=== PATIENT | female | born 1975 | race Hispanic/Latino ===

== ENCOUNTER → 2019-08-23 | Day surgery (SDC) | payer BC ==
[~2019-08-23] MED LIST: FAMOTIDINE20 MG PO; FENTANYL CITRATE/PF 100MCG/2 ML INJ ONE; HYDROCHLOROTHIA25 MG PO; IRON PO; LOSARTAN POTAS100 MG PO; METOPROLOL SUCC50 MG PO; MIDAZOLAM HCL 2 MG/2 ML VIAL ONE; PHENYLEPHRINE HCL 1% 10 MG/ML VIAL ONE; PROPOFOL IV EMULSION 10 MG/ML 50 ML VIAL ONE
[2019-08-23 13:25] VITALS: BP 113/65
--- OUTSIDE RECORDS SUMMARY | 2019-09-02 10:27 | XMS REPORT ---
[facility] Address Unknown Phone Unavailable Care Team Providers Care Slab Puller Name Role Phone DEBORAH TRACY Unavailable Unavailable Payers Payer Name Policy Type Policy Number Effective Date Expiration Date Problems This patient has no known problems. Allergies, Adverse Reactions, Alerts Allergy Name Allergy Type Status Severity Reaction(s) Onset Date Inactive Date Treating Clinician Comments No Known Allergies DA Active U 2019-07-18 00:00:00 No Known Allergies DA Active U 2014-01-11 00:00:00 Medications This patient has no known medications. Results Test Description Test Time Test Comments Text Results Atomic Results Result Comments TROPONIN-I 2019-07-18 20:34:00 TROPONIN-I (test code=TROPI) <0.015 ng/mL 0-0.045 COMMENTS TO WOOD GETTER: COLLECT 3 HOURS AFTER PREVIOUS [id number] 17:18:00* Test Item Value Reference Range Comments TROPONIN-I (test code=TROPI) <0.015 ng/mL 0-0.045 COMMENTS TO WOOD GETTER: COLLECT 3 HOURS AFTER PREVIOUS SAMPLETROPONIN I [id number] 10:31:00* Test Item Value Reference Range Comments TROPONIN I RAPID (test code=TROPIRAP) 0.00 ng/mL <0.08 Please Note New Reference Range 0.00-0.079 ng/mL - Negative>or=0.08 ng/mL - Positive The use of serial sampling and testing protocol is arecommended practice.An elevated troponin level alone is often not sufficient fordiagnosis of myocardial infarction. Troponin results obtained by different assays may vary.Evaluation of the extent of myocardial damage based onincrease of troponin would be valid only if similarmethodology is used. CHEMISTRY 8 [id number] 10:17:00* Test Item Value Reference Range Comments ISTAT-SODIUM (test code=NAP) mmol/L 135-148 ISTAT-POTASSIUM (test code=KP) mmol/L 3.5-5.5 ISTAT-CHLORIDE (test code=CLP) mmol/L 101-109 ISTAT CARBON DIOXIDE (test code=ISTAT-CO2) mmol/L 21-32 ISTAT CALCIUM IONIZED (test code=ISTAT-ANIKET) mg/dL 1.12-1.32 ISTAT-ANION GAP (test code=GAPP) MEQ/L 10-20 ISTAT-GLUCOSE (test code=GLUP) mg/dL 74-106 ISTAT-BUN (test code=BUNP) mg/dL 3-21 BEDSIDE CREATININE (test code=CREATBED) mg/dL 0.7-1.3 GLOMERULAR FILTRATION RATE POC (test code=GFRBED) 133 >60 CHEMISTRY 8 [id number] 10:17:00* Test Item Value Reference Range Comments ISTAT-SODIUM (test code=NAP) 139 mmol/L 135-148 ISTAT-POTASSIUM (test code=KP) 3.5 mmol/L 3.5-5.5 ISTAT-CHLORIDE (test code=CLP) 103 mmol/L 101-109 ISTAT CARBON DIOXIDE (test code=ISTAT-CO2) 34.0 mmol/L 21-32 ISTAT CALCIUM IONIZED (test code=ISTAT-ANIKET) 1.16 mg/dL 1.12-1.32 ISTAT-ANION GAP (test code=GAPP) 6.0 MEQ/L 10-20 ISTAT-GLUCOSE (test code=GLUP) 131 mg/dL 74-106 ISTAT-BUN (test code=BUNP) 9 mg/dL 3-21 BEDSIDE CREATININE (test code=CREATBED) 0.5 mg/dL 0.7-1.3 GLOMERULAR FILTRATION RATE POC (test code=GFRBED) 133 >60 BASIC METABOLIC [id number] 10:03:00* Test Item Value Reference Range Comments SODIUM (test code=NA) 140 mmol/L 136-145 POTASSIUM (test code=K) 3.5 mmol/L 3.5-5.1 CHLORIDE (test code=CL) 106.0 mmol/L 98-107 CARBON DIOXIDE (test code=CO2) 27.0 mmol/L 21-32 ANION GAP (test code=GAP) 10.5 10-20 GLUCOSE (test code=GLU) 127 mg/dL 74-106 BLOOD UREA NITROGEN (test code=BUN) 10 mg/dL 7-18 GLOMERULAR FILTRATION RATE (test code=GFR) > 60 mL/min >=60 Estimated GFR by using Modified MDRD formula.Chronic kidney disease is defined as either kidney damageor GFR <60 mL/min/1.73 m2 for >3 months. CREATININE (test code=CREAT) 0.60 mg/dL 0.55-1.02 Note change in reference range due to change in reagent. BUN/CREATININE RATIO (test code=BUN/CREA) 16.7 10-20 CALCIUM (test code=CA) 8.9 mg/dL 8.5-10.1 HCG SERUM [id number] 10:03:00* Test Item Value Reference Range Comments HCG SERUM QUAL (test code=HCGQL) NEGATIVE NEGATIVE This HCGQL test is NOT applicable for MALE patients.Check with nurse about probable order error.If Tumor Marker Test needed, nurse should order test "HCGTU"(Test #550.72273) [id number] 10:03:00* Test Item Value Reference Range Comments TROPONIN-I (test code=TROPI) <0.015 ng/mL 0-0.045 BASIC METABOLIC [id number] 10:00:00* Test Item Value Reference Range Comments SODIUM (test code=NA) 140 mmol/L 136-145 POTASSIUM (test code=K) 3.5 mmol/L 3.5-5.1 CHLORIDE (test code=CL) 106.0 mmol/L 98-107 CARBON DIOXIDE (test code=CO2) mmol/L 21-32 ANION GAP (test code=GAP) 10-20 GLUCOSE (test code=GLU) mg/dL 74-106 BLOOD UREA NITROGEN (test code=BUN) mg/dL 7-18 GLOMERULAR FILTRATION RATE (test code=GFR) mL/min >=60 CREATININE (test code=CREAT) mg/dL 0.55-1.02 BUN/CREATININE RATIO (test code=BUN/CREA) 10-20 CALCIUM (test code=CA) mg/dL 8.5-10.1 HCG SERUM [id number] 10:00:00* Test Item Value Reference Range Comments HCG SERUM QUAL (test code=HCGQL) NEGATIVE NEGATIVE This HCGQL test is NOT applicable for MALE patients.Check with nurse about probable order error.If Tumor Marker Test needed, nurse should order test "HCGTU"(Test #550.36357) [id number] 10:00:00* Test Item Value Reference Range Comments TROPONIN-I (test code=TROPI) ng/mL 0-0.045 - CT HEAD/BRAIN W/O [id number] 09:56:00 Name: CEASAR SINCLAIR [facility] : 1975 Age/S: 44 / F [address] [facility] Unit #: [id number] Loc: [place] [address] Phys: Shemar Levy DO Acct: [id number] Dis Date: Status: REG ER PHONE #: [phone] Exam Date: 07/18/2019 0943 FAX #: [phone] Reason: headache/left arm numbness - resoved EXAMS: CPT CODE: [id number] CT HEAD/BRAIN W/O CONT [id number] HISTORY: headache/left arm numbness - resoved TECHNIQUE: Noncontrast 2.[address] of the head. Examination acquired within 24 hours of arrival. Automated exposure control for dose reduction. COMPARISON: Noncontrast CT brain February 16, 2012 FINDINGS: No lacerations or contusions of the scalp or facial soft tissues. Calvarium and skull base are intact. No acute hemorrhage. No intracranial mass, mass effect, or midline shift. No effacement of the sulci or hatfield-white matter interface. No cortical atrophy. No signs of white matter small-vessel disease. No hydrocephalus.. No extra-axial fluid collection. Visualized paranasal sinuses are clear. Mastoid air cells and middle ear cavities are clear. Orbital contents are unremarkable. IMPRESSION: Negative CT head. Locat ion: [facility] at 09 56 Reported and signed by: Clive Flores MD CC: Michelet Green MD; Shemar Levy DO Technologist:Baljinder Garcia RT(R),(MR),(CT) CTDI: DLP: Trnscb Date/Time: 07/18/2019 (0956) [email or web address] Orig Print D/T: S: 07/18/2019 (0980) PAGE 1 Signed Report BASIC METABOLIC [id number] 09:55:00* Test Item Value Reference Range Comments SODIUM (test code=NA) mmol/L 136-145 POTASSIUM (test code=K) mmol/L 3.5-5.1 CHLORIDE (test code=CL) mmol/L 98-107 CARBON DIOXIDE (test code=CO2) mmol/L 21-32 ANION GAP (test code=GAP) 10-20 GLUCOSE (test code=GLU) mg/dL 74-106 BLOOD UREA NITROGEN (test code=BUN) mg/dL 7-18 GLOMERULAR FILTRATION RATE (test code=GFR) mL/min >=60 CREATININE (test code=CREAT) mg/dL 0.55-1.02 BUN/CREATININE RATIO (test code=BUN/CREA) 10-20 CALCIUM (test code=CA) mg/dL 8.5-10.1 HCG SERUM [id number] 09:55:00* Test Item Value Reference Range Comments HCG SERUM QUAL (test code=HCGQL) NEGATIVE NEGATIVE This HCGQL test is NOT applicable for MALE patients.Check with nurse about probable order error.If Tumor Marker Test needed, nurse should order test "HCGTU"(Test #550.32101) [id number] 09:55:00* Test Item Value Reference Range Comments TROPONIN-I (test code=TROPI) ng/mL 0-0.045 CBC W/O [id number] 09:45:00* Test Item Value Reference Range Comments WHITE BLOOD CELL (test code=WBC) 8.5 K/mm3 4.5-12.5 RED BLOOD CELL (test code=RBC) 4.80 mill/mm3 3.7-5.2 HEMOGLOBIN (test code=HGB) 11.9 gram/dL 11.5-15.5 HEMATOCRIT (test code=HCT) 39.2 % 36.0-46.0 MEAN CELL VOLUME (test code=MCV) 81.7 fL 80-98 MEAN CELL HGB (test code=MCH) 24.8 picogram 27.0-33.0 MEAN CELL HGB CONCETRATION (test code=MCHC) 30.4 gram/dL 33.0-36.0 RED CELL DISTRIBUTION WIDTH (test code=RDW) 16.3 % 11.6-16.2 PLATELET COUNT (test code=PLT) 446 K/mm3 150-450 MEAN PLATELET VOLUME (test code=MPV) 10.1 fL 6.7-11.0 CBC W/O [id number] 09:44:00* Test Item Value Reference Range Comments WHITE BLOOD CELL (test code=WBC) K/mm3 4.5-12.5 RED BLOOD CELL (test code=RBC) mill/mm3 3.7-5.2 HEMOGLOBIN (test code=HGB) 11.9 gram/dL 11.5-15.5 HEMATOCRIT (test code=HCT) 39.2 % 36.0-46.0 MEAN CELL VOLUME (test code=MCV) fL 80-98 MEAN CELL HGB (test code=MCH) picogram 27.0-33.0 MEAN CELL HGB CONCETRATION (test code=MCHC) gram/dL 33.0-36.0 RED CELL DISTRIBUTION WIDTH (test code=RDW) % 11.6-16.2 PLATELET COUNT (test code=PLT) K/mm3 150-450 MEAN PLATELET VOLUME (test code=MPV) fL 6.7-11.0 - XR CHEST 1 [id number] 09:43:00 FAX: Michelet Ventura [phone] [place]: St: REG FAX: Shemar Levy DO Name: CEASAR SINCLAIR [facility] : 1975 Age/S: 44/F [address] Unit #: [id number] Loc: [place] [address] Phys: Shemar Levy DO Acct: [id number] Dis Date: Status: REG ER PHONE #: [phone] Exam Date: 07/18/2019928 FAX #: [phone] Reason: CHEST PAIN EXAMS: CPT CODE: [id number] XR CHEST 1 V [id number] REASON FOR EXAM: CHEST PAIN Exam Order Date: 07/18/2019 9:21 AM Ordering M.DEmilie: Shemar Levy DO PROCEDURE: - XR CHEST 1 V COMPARISON: None FINDINGS: The lungs are clear. There is no pleural effusion or pneumothorax. Pulmonary vascularity is within normal limits. Cardiomediastinal silhouette is normal in size for technique. The mediastinal contours are within normal limits. Musculoskeletal structures are within normal limits. The visualized upper abdomen is within normal limits. IMPRESSION: No acute cardiopulmonary process. Location: [facility] ED at 0943 Reported and signed by: Clive Flores MD CC: Michelet Thomas MD; Shemar Levy DO Te chnologist: Jamila Rivas RT(R); STUDENT TECHNOLOGIST Trnscrd Date/ Time/By: 07/18/2019 (3627) : By: [email or web address] Orig Print D/T: S: 07/18/20 19 (0937) PAGE 1 Signed Report US PELVIS COMPLETE NON [id number] 11:44:00 [place] [address] Patient Name: CEASAR SINCLAIR MR #: [id number] : 1975 Age/Sex: 42/F Req #: [id number] Adm Physician: Ordered by: DEMARCUS HELTON, DEBORAH Sethi MD Report #: [id number] Location: US R oom/Bed: Procedure: [id number] US/US PELVIS COMPLETE N ON OB Exam Date: Exam Time: REPORT STATUS: S igned EXAM: Transabdominal and Transvaginal Pelvic Ultrasound INDICATION: COMPARISON: None TECHNIQUE: Grayscale transverse and sagittal tra nsabdominal and transvaginal images were obtained of the pelvis. Transvaginal imaging was medically necessary to better evaluate the endometrium and the adn exa. CLINICAL HISTORY: 42 year old A0; last menstrual period: 05/15. FINDINGS: Uterus Orientation: Normal Size: 9.1 x 4.4 x 5.9 cm, Normal Mass: None Cervix: Normal Endometrium: Thickness: 0 .2 cm, Normal. Appearance: Homogeneous echotexture without focal thickening. Right ovary: Size: 3.5 x 1.9 x 2.1 cm Mass/Cyst: None Left ovar y: Size: 3.7 x 2.1 x 2.8 cm Mass/Cyst: None Adnexa: Normal Cul-de- sac: Small to moderate amount of free fluid IMPRESSION: Small to moderat e amount of free fluid in the pelvis of indeterminate significance. Differenti al diagnosis includes ruptured ovarian hemorrhagic cyst, though no ovarian cys ts are visualized. If pain persists, consider further evaluation with CT ab domen and pelvis with contrast. Signed by: Corey Gutierrez on 05/27/2018 11:47 AM Dictated By: DEVON COATES MD Electr onically Signed By: DEVON COATES MD on 05/27/18 1147 Transcribed By: LAURA on 05/27/18 1147 COPY TO: DEBORAH TRACY
== END | disposition home or self-care (01) ==
LOC: OR 09:54
PROVIDERS: ATTEND Internal Medicine Gastroenterology
DX: D12.2 Benign neoplasm of ascending colon (principal); D64.9 Anemia, unspecified; K30 Functional dyspepsia; K92.1 Melena; I10 Essential (primary) hypertension; K64.8 Other hemorrhoids; Z01.810 Encounter for preprocedural cardiovascular examination; Z01.812 Encounter for preprocedural laboratory examination
CPT/HCPCS: 45384; 81025; 93005; J2250; J2370; J2704; J3010; 45378